=== PATIENT | female | born 1970 | race Caucasian/White ===

== ENCOUNTER → 2018-12-10 11:26 | Outpatient (CLI) | payer OTHER, MEDICAID, SELFPAY ==
--- NOTE | 2018-12-10 | DI.RAD.S_ITS ---
PROCEDURE: XR KNEE RT 1TO2V INDICATIONS: RIGHT KNEE PAIN TECHNIQUE: 2 views of the knee were acquired. COMPARISON: None. FINDINGS: Bones: No fractures or dislocations. No suspicious bony lesions. Soft tissues: No joint effusion. No suspicious soft tissue calcifications. IMPRESSION: Normal right knee. Dictated by: Neena Hills M.D. on 12/10/2018 at 15:38 Approved by: Neena Hills M.D. on 12/10/2018 at 15:38
--- NOTE | 2018-12-10 | DI.RAD.S_ITS ---
PROCEDURE: XR HAND RT 2V INDICATIONS: RIGHT HAND PAIN TECHNIQUE: 2 views of the hand(s) acquired. COMPARISON: None. FINDINGS: Bones: No fractures or dislocations. Carpal bones are normally aligned. No suspicious bony lesions. Soft tissues: No suspicious soft tissue calcifications. IMPRESSION: Normal right hand. Dictated by: Neena Hills M.D. on 12/10/2018 at 15:37 Approved by: Neena Hills M.D. on 12/10/2018 at 15:37
== END ==
DX: M79.641 Pain in right hand (principal); M25.561 Pain in right knee
CPT/HCPCS: 73120; 73560